=== PATIENT | male | born 2000 | race Caucasian/White ===

== ENCOUNTER 2020-07-20 06:54 | Outpatient (NON) | payer BC, SELFPAY ==
[2020-07-20 21:13] LABS: SARS-CoV-2 RNA PCR Negative
== END 2020-07-20 06:55 ==
LOC: ANHCOVIDDT 06:59
PROVIDERS: Family Provider Pediatrics; PCP Nurse Practitioner Adult Health; Visit Provider Nurse Practitioner Adult Health
DX: R09.81 Nasal congestion (principal); Z20.822 Contact with and (suspected) exposure to COVID-19
CPT/HCPCS: C9803; U0003; U0005